=== PATIENT | female | born 2000 | race Caucasian/White ===

== ENCOUNTER 2018-04-23 21:16 | Emergency (ER) | payer OTHER ==
[~2018-04-23] VITALS: Ht 167.6 cm; Wt 54.0 kg
[2018-04-23] MEDS ORDERED: FAMOTIDINE 20 MG/2 ML VIAL IV STA (22:11)
[2018-04-23] MEDS ORDERED: SODIUM CHLORIDE 0.9% 1000ML 1,000 ML IV ONE (22:15)
== END 2018-04-23 23:04 | disposition home or self-care (01) ==
LOC: FSED 21:16
DX: R10.33 Periumbilical pain (principal); K29.00 Acute gastritis without bleeding; K21.9 Gastro-esophageal reflux disease without esophagitis
CPT/HCPCS: 99283; J7030